=== PATIENT | male | born 1965 | race Caucasian/White ===

== ENCOUNTER 2025-10-03 07:42 | Emergency (ER) | payer BC ==
[2025-10-03] MEDS ORDERED: Ondansetron PF 4 MG/2 ML Vial ONE (08:06)
[2025-10-03] MEDS ORDERED: Pantoprazole 40 MG VIAL ONE (08:06)
[2025-10-03 08:21] LABS: #Basophils 0.1 thou/uL (0.0-0.2); #Eosinophils 0.2 thou/uL (0.0-0.7); #Lymphocytes 0.4 thou/uL (1.20-3.40); #Monocytes 0.6 thou/uL (0.11-0.59); #Neutrophils 7.8 thou/uL (1.40-6.50); %Basophils 1.3 % (0.0-1.0); %Eosinophils 1.9 % (0.0-10.0); %Lymphocytes 4.4 % (21.0-51.0); %Monocytes 6.1 % (0.0-10.0); %Neutrophils 86.3 % (42.0-75.0); Hematocrit 43.8 % (42.0-52.0); Hemoglobin 14.3 g/dL (14.0-18.0); Mean Corpuscular Hemoglobin 29.5 pg (27.0-31.0); Mean Corpuscular Volume 90.7 fl (78.0-98.0); Platelet Count 225 10x3/uL (130-400); Red Blood Cell (RBC) Count 4.83 mill/uL (4.70-6.10); White Blood Cell (WBC) Count 9.0 10x3/uL (4.8-10.8)
[2025-10-03 08:24] LABS: ALT (SGPT) 34 U/L (Less than 45); AST (SGOT) 51 U/L (11-34); Albumin 4.2 g/dL (3.1-4.5); Alkaline Phosphatase 83 U/L (40-110); Anion Gap 13 mmol/L (10-20); BUN (Urea Nitrogen) 13 mg/dL (8.4-25.7); Bilirubin, Total 0.6 mg/dL (0.3-1.2); Calc. Creatinine Clearance 0 mL/min (70-130); Calcium 8.8 mg/dL (7.8-10.44); Carbon Dioxide 22 mmol/L (22-29); Chloride 106 mmol/L (98-107); Globulin 2.7 g/dL (2.4-3.5); Glucose 122 mg/dL (70-105); Lipase 15 U/L (8-78); Potassium 3.7 mmol/L (3.5-5.1); Sodium 137 mmol/L (136-145)
[2025-10-03] MEDS ORDERED: Iopamidol 370 76% 100 ML VIAL ONE (09:39)
== END 2025-10-03 09:25 | disposition home or self-care (01) ==
LOC: BURERS 07:42
DX: K29.00 Acute gastritis without bleeding (principal)
CPT/HCPCS: 74177; 80053; 83690; 85025; 96361; 96374; 96375; J2270; J2405; J2470; Q9967